=== PATIENT | male | born 1990 | race Two or more races ===

== ENCOUNTER 2018-06-25 06:38 | Emergency (ER) | payer OTHER ==
[~2018-06-25] VITALS: Ht 172.7 cm; Wt 81.6 kg
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
[2018-06-25 07:14] VITALS: BP 139/84
[2018-06-25] MEDS ORDERED: IBUPROFEN600 MG ORAL (07:16)
[2018-06-25 07:43] VITALS: BP 139/84
--- NOTE | 2018-06-26 09:48 | Diagnostic Imaging Report ---
Indication: Shortness of Technique: One view of the chest Comparison: none Findings: Lungs and pleural spaces are clear. Heart size is normal Impression: No acute process This agrees with the preliminary interpretation provided overnight by [facility]iology service.
== END 2018-06-25 07:50 | disposition home or self-care (01) ==
LOC: EDBD 06:38 → EMR 07:28
DX: S20.219A Contusion of unspecified front wall of thorax, initial encounter (principal); M79.1 Myalgia; V19.3XXA Pedal cyclist (driver) (passenger) injured in unspecified nontraffic accident, initial encounter; Y92.488 Other paved roadways as the place of occurrence of the external cause; F20.9 Schizophrenia, unspecified; F17.200 Nicotine dependence, unspecified, uncomplicated; Z93.0 Tracheostomy status
CPT/HCPCS: 71045; 99283